=== PATIENT | female | born 1940 ===

== ENCOUNTER 2019-05-05 09:14 | Emergency (ER) | payer OTHER ==
[~2019-05-05] VITALS: Ht 162.6 cm; Wt 56.7 kg
== END 2019-05-05 10:03 | disposition home or self-care (01) ==
LOC: ER 09:14
DX: S01.521A Laceration with foreign body of lip, initial encounter (principal); W18.09XA Striking against other object with subsequent fall, initial encounter; Y93.89 Activity, other specified; Y92.89 Other specified places as the place of occurrence of the external cause; Y99.8 Other external cause status